=== PATIENT | male | born 1965 | race Caucasian/White ===

== ENCOUNTER 2019-03-14 13:32 | Inpatient (IN) | payer OTHER, MEDICAID ==
[~2019-03-14] VITALS: Ht 175.3 cm; Wt 86.2 kg
[~2019-03-14 13:32] MED LIST: ALD2525 MT; ATOR40TA70 MT; ESOM40CA MT; INSLIS SUBCUT; LEVVL SQ; POTA-79 MT; TAMS-11 MT
[2019-03-14 15:36] LABS: BASOPHILS % 0.1 % (0.0-2.0); EOSINOPHILS % 1.3 % (0.0-5.0); HEMATOCRIT. 38.3 % (42.0-52.0); HEMOGLOBIN. 13.5 g/dL (14.0-18.0); LYMPHOCYTES % 11.3 % (20.0-50.0); MEAN CORPUSCULAR VOLUME 99.1 fL (80.0-94.0); MEAN PLATELET VOLUME 10.1 fl (7.4-10.4); MONOCYTES % 8.8 % (2.0-8.0); NEUTROPHILS % 78.5 % (40.0-76.0); PLATELET 57 x1000/uL (130-400); RED BLOOD CELL COUNT 3.86 mill/uL (4.7-6.1); RED CELL DISTRIBUTION WIDTH 13.6 % (11.6-14.6)
[2019-03-14 15:37] LABS: CLARITY URINE CLEAR (CLEAR); COLOR URINE YELLOW (YELLOW); KETONES URINE NEGATIVE (NEGATIVE); LEUKOCYTE ESTERASE URINE NEGATIVE (NEGATIVE); NITRITE URINE NEGATIVE (NEGATIVE); OCCULT BLOOD URINE TRACE (NEGATIVE); PH URINE 5.5 (4.5-8.0); PROTEIN URINE NEGATIVE (NEGATIVE); SPECIFIC GRAVITY URINE 1.025 (1.005-1.030); UROBILINOGEN URINE 0.2 E.U./dL (0.2-1.0)
[2019-03-14 15:41] LABS: CHLORIDE 104 mEq/L (98-107)
[2019-03-14 15:42] LABS: INR 1.2; PROTHROMBIN TIME 11.9 sec (9.6-11.0)
[2019-03-14] MEDS ORDERED: AMPICILLIN SOD/SULBACTAM NA 3 G in SODIUM CHLORIDE 0.9% 100 ML IV SCH (16:08)
[2019-03-14] MEDS ORDERED: INSULIN REGULAR (HUMULIN R) 300UNITS/3ML SUBCUT ONE (16:30)
[2019-03-14] MEDS ORDERED: DOCUSATE SODIUM 100MG CAPSULE PO PRN (17:15)
[2019-03-14] MEDS ORDERED: IPRATROPIUM/ALBUTEROL 0.5-3(2.5)MG/3ML NEB INH PRN (17:15)
[2019-03-14] MEDS ORDERED: ONDANSETRON HCL 4MG/2ML INJ IV PRN (17:15)
[2019-03-14] MEDS ORDERED: MAGNESIUM/ALUMINUM HYDROXIDE/SIMETHICONE 30ML UDC PO PRN (17:15)
[2019-03-14] MEDS ORDERED: DIPHENHYDRAMINE 50MG/ML VIAL IV PRN (17:15)
[2019-03-14] MEDS ORDERED: GUAIFENESIN 200MG/10ML SUGAR FREE UDC PO PRN (17:15)
[2019-03-14] MEDS ORDERED: ENOXAPARIN 40MG/0.4ML SYR SUBCUT SCH (17:15)
[2019-03-14] MEDS ORDERED: CLONIDINE 0.1MG TABLET PO PRN (17:15)
[2019-03-14 18:20] LABS: PHOSPHORUS 2.9 mg/dL (2.5-4.9)
[2019-03-14 21:20] VITALS: BP 133/61
[2019-03-14 22:00] VITALS: BP 133/61
[2019-03-14] MEDS: MORPHINE SULFATE 4 MG/ML CPJ (NOT FOR IM USE) IV PRN (23:45)
[2019-03-15] VITALS: BP 135/56
[2019-03-15] MEDS: AMPICILLIN SOD/SULBACTAM NA 3 G in SODIUM CHLORIDE 0.9% 100 ML IV SCH ×2 (02:12→06:51)
[2019-03-15 04:00] VITALS: BP 128/60
[2019-03-15] MEDS ORDERED: DEXTROSE 50% WATER 50ML SYRINGE IV PRN (04:45)
[2019-03-15 06:03] LABS: BASOPHILS % 0.3 % (0.0-2.0); HEMATOCRIT. 34.8 % (42.0-52.0); HEMOGLOBIN. 12.5 g/dL (14.0-18.0); LYMPHOCYTES % 17.7 % (20.0-50.0); MEAN CORPUSCULAR VOLUME 97.7 fL (80.0-94.0); MEAN PLATELET VOLUME 9.7 fl (7.4-10.4); MONOCYTES % 8.3 % (2.0-8.0); NEUTROPHILS % 71.7 % (40.0-76.0); PLATELET 56 x1000/uL (130-400); RED BLOOD CELL COUNT 3.56 mill/uL (4.7-6.1); RED CELL DISTRIBUTION WIDTH 13.5 % (11.6-14.6)
[2019-03-15 07:06] LABS: CHLORIDE 107 mEq/L (98-107)
[2019-03-15] MEDS: INSULIN LISPRO 100 UNITS/ML SUBCUT SCH ×4 (07:07→22:11)
[2019-03-15 07:13] LABS: LDL CHOLESTEROL 130 mg/dL (5-100)
[2019-03-15 07:15] LABS: HDL CHOLESTEROL 81 mg/dL (40-59)
[2019-03-15] MEDS: BLOOD SUGAR DIAGNOSTIC STRIP TEST SCH ×4 (07:20→21:59)
[2019-03-15 07:52] VITALS: BP 112/53
[2019-03-15] MEDS: MORPHINE SULFATE 4 MG/ML CPJ (NOT FOR IM USE) IV PRN (10:50)
[2019-03-15 11:41] VITALS: BP 124/72
[2019-03-15] MEDS ORDERED: PIPERACILLIN/TAZ 3.375G PREMIX 50 ML IV SCH (14:00)
[2019-03-15] MEDS ORDERED: VANCOMYCIN 1500MG in DEXTROSE 5% WATER 250ML IV SCH (14:00)
[2019-03-15] MEDS: ATORVASTATIN CALCIUM 40MG TABLET PO SCH (14:36)
[2019-03-15] MEDS: TAMSULOSIN HCL 0.4MG SR CAPSULE PO SCH (14:36)
[2019-03-15] MEDS: SPIRONOLACTONE 25MG TABLET PO SCH (14:37)
[2019-03-15] MEDS: PANTOPRAZOLE 40MG DR TABLET PO SCH (14:37)
[2019-03-15 16:06] VITALS: BP 110/58
[2019-03-15 16:25] LABS: VITAMIN B12 SERUM >2000 pg/mL pg/mL (211-911)
[2019-03-15] MEDS: VANCOMYCIN 1 G PREMIX 200 ML IV SCH (21:59)
[2019-03-16 04:00] VITALS: BP 128/74
[2019-03-16] MEDS: VANCOMYCIN 1 G PREMIX 200 ML IV SCH ×2 (06:13→13:05)
[2019-03-16 06:47] LABS: BASOPHILS % 0.6 % (0.0-2.0); EOSINOPHILS % 2.8 % (0.0-5.0); HEMATOCRIT. 33.7 % (42.0-52.0); HEMOGLOBIN. 12.1 g/dL (14.0-18.0); MEAN CORPUSCULAR HEMOGLOBIN 35.1 pg (28.0-32.0); MEAN CORPUSCULAR VOLUME 97.4 fL (80.0-94.0); MEAN PLATELET VOLUME 10.3 fl (7.4-10.4); MONOCYTES % 8.9 % (2.0-8.0); NEUTROPHILS % 64.7 % (40.0-76.0); PLATELET 68 x1000/uL (130-400); RED BLOOD CELL COUNT 3.46 mill/uL (4.7-6.1); RED CELL DISTRIBUTION WIDTH 13.5 % (11.6-14.6)
[2019-03-16] MEDS: PANTOPRAZOLE 40MG DR TABLET PO SCH (06:47)
[2019-03-16] MEDS: BLOOD SUGAR DIAGNOSTIC STRIP TEST SCH ×4 (06:47→22:42)
[2019-03-16] MEDS: INSULIN LISPRO 100 UNITS/ML SUBCUT SCH ×4 (07:00→22:48)
[2019-03-16 07:06] LABS: CHLORIDE 106 mEq/L (98-107)
[2019-03-16 08:00] VITALS: BP 106/59
[2019-03-16] MEDS: ATORVASTATIN CALCIUM 40MG TABLET PO SCH (08:22)
[2019-03-16] MEDS: TAMSULOSIN HCL 0.4MG SR CAPSULE PO SCH (08:25)
[2019-03-16] MEDS: SPIRONOLACTONE 25MG TABLET PO SCH (08:25)
[2019-03-16 11:50] VITALS: BP 108/54
[2019-03-16 15:48] VITALS: BP 124/66
[2019-03-16 20:00] VITALS: BP 108/58
[2019-03-16] MEDS: VANCOMYCIN 1250MG in DEXTROSE 5% WATER 250ML IV SCH (22:48)
[2019-03-17] VITALS: BP 97/82
[2019-03-17] MEDS: VANCOMYCIN 1250MG in DEXTROSE 5% WATER 250ML IV SCH (06:55)
[2019-03-17] MEDS: BLOOD SUGAR DIAGNOSTIC STRIP TEST SCH ×2 (06:55→12:20)
[2019-03-17] MEDS: PANTOPRAZOLE 40MG DR TABLET PO SCH (06:55)
[2019-03-17] MEDS: INSULIN LISPRO 100 UNITS/ML SUBCUT SCH ×2 (07:19→13:20)
[2019-03-17 07:44] LABS: BASOPHILS % 0.7 % (0.0-2.0); EOSINOPHILS % 3.4 % (0.0-5.0); HEMATOCRIT. 36.1 % (42.0-52.0); HEMOGLOBIN. 12.7 g/dL (14.0-18.0); LYMPHOCYTES % 24.2 % (20.0-50.0); MEAN CORPUSCULAR HEMOGLOBIN 34.6 pg (28.0-32.0); MEAN CORPUSCULAR VOLUME 98.1 fL (80.0-94.0); MEAN PLATELET VOLUME 10.8 fl (7.4-10.4); MONOCYTES % 7.7 % (2.0-8.0); PLATELET 79 x1000/uL (130-400); RED BLOOD CELL COUNT 3.68 mill/uL (4.7-6.1); RED CELL DISTRIBUTION WIDTH 13.5 % (11.6-14.6)
[2019-03-17 08:00] VITALS: BP 120/71
[2019-03-17 08:04] LABS: CHLORIDE 106 mEq/L (98-107)
[2019-03-17] MEDS: ATORVASTATIN CALCIUM 40MG TABLET PO SCH (09:23)
[2019-03-17] MEDS: TAMSULOSIN HCL 0.4MG SR CAPSULE PO SCH (09:24)
[2019-03-17] MEDS: SPIRONOLACTONE 25MG TABLET PO SCH (09:24)
[2019-03-17 12:00] VITALS: BP 116/78
[2019-03-17] MEDS ORDERED: INSULIN LISPRO 100 UNITS/ML SUBCUT SCH (12:20)
[2019-03-17 12:38] VITALS: BP 116/78
[2019-03-17] MEDS ORDERED: INSULIN GLARGINE UD 100 UNITS/ML SYR SUBCUT SCH ×2 (14:00→22:00)
== END 2019-03-17 14:54 | disposition home or self-care (01) | DRG 383 ==
LOC: ER 13:32 → 6EST 16:23 → EDBEDREQSVC 16:25 → EDBEDREQ 16:25 → ENRESERV 20:57
PROVIDERS: ADMIT Internal Medicine; ATTEND Internal Medicine
DX: L03.116 Cellulitis of left lower limb (principal); E11.42 Type 2 diabetes mellitus with diabetic polyneuropathy; Z79.4 Long term (current) use of insulin; D53.9 Nutritional anemia, unspecified; E78.5 Hyperlipidemia, unspecified; I10 Essential (primary) hypertension; K76.9 Liver disease, unspecified; R74.0 Nonspecific elevation of levels of transaminase and lactic acid dehydrogenase [LDH]
CPT/HCPCS: 36415; 71045; 73630; 76700; 80048; 80061; 80076; 80202; 82010; 82607; 82746; 82962; 83036; 83735; 83880; 84100; 84443; 84484; 93005; 93971; 96365; 96372; 97161; 99285; J0295; J1200; J1815; J2270; J2543; J3370; J7040; J7050; J7060